=== PATIENT | male | born 1945 | race Caucasian/White ===

== ENCOUNTER 2021-11-21 18:53 | Inpatient (IN) | payer MEDICARE ==
[2021-11-21] MEDS ORDERED: HYDROmorphone 0.5 MG/0.5 ML SYRINGE IVP STA ×2 (19:19→22:03)
--- NOTE | 2021-11-21 19:24 | ED ---
Neuro HPI - General Chief Complaint: Neuro Symptoms/Deficit Stated Complaint: headache/ear pain/loss of vision/arm numbness Source: patient Mode of arrival: ambulatory Limitations: no limitations - History of Present Illness Is the patient presenting with stroke symptoms?: No Initial Comments: 76-year-old male history of CVA in the past mother medical issues who states he had the onset yesterday of some loss of vision in his left eye he later stated w as around 3 or 3:30 today he's had a headache since that time worse in the migraine he states. No loss of function to his upper or lower extremities he does have a contraction of his left ring finger. He also states he had some difficulty with ambulation. He states he would've come the hospital yesterday but he could not get a ride. He did not want come by ambulance. He states his vision is left eye is now somewhat fuzzy but improved from an stated earlier. He also states he has severe ALLERGIES to contrast he was coded when he got some years ago. No fevers chills nausea vomiting sweats he states he also has some ear pain bilaterally. Posture some pain going into his neck. - Related Data Home Medications: Home Medications Medication Instructions Recorded Confirmed Aspirin EC [Ecotrin] 325 mg PO DAILY 11/10/14 11/10/14 Atorvastatin [Lipitor] 20 mg PO DAILY 11/10/14 11/10/14 Cholecalciferol [Vitamin D3] 2,000 unit PO DAILY@1200 11/10/14 11/10/14 Clopidogrel [Plavix] 75 mg PO DAILY 11/10/14 11/10/14 Doxazosin [Cardura] 1 mg PO DAILY 11/10/14 11/10/14 Finasteride [Proscar] 5 mg PO DAILY 11/10/14 11/10/14 Gabapentin [Neurontin] 300 mg PO DAILY 11/10/14 11/10/14 Insulin Glargine [Lantus] 50 unit SQ BID 11/10/14 11/10/14 Insulin NPH Hum/Reg Insulin Hm 30 unit SQ DAILY 11/10/14 11/10/14 [NovoLIN 70-30 100 UNIT/ML VIAL] Metoprolol Tartrate [Lopressor] 50 mg PO BID 11/10/14 11/10/14 Nitroglycerin Sl Tabs [Nitrostat] 0.4 mg SUBLINGUAL DIRECTED PRN 11/10/14 11/10/14 Silodosin [Rapaflo] 8 mg PO DAILY 11/10/14 11/10/14 Tamsulosin [Flomax] 0.4 mg PO DAILY 11/10/14 11/10/14 lisinopriL [Zestril] 2.5 mg PO DAILY 11/10/14 11/10/14 Allergies/Adverse Reactions: Allergies Allergy/AdvReac Type Severity Reaction Status Date / Time iodine Allergy Unknown Verified 11/21/21 19:00 Review of Systems ROS Statement: Those systems with pertinent positive or pertinent negative responses have been documented in the HPI. ROS Other: All systems not noted in ROS Statement are negative. General Exam - General Exam Comments Initial Comments: This is a well-developed well-nourished awake alert oriented 4 male Limitations: no limitations General appearance: alert, in no apparent distress Head exam: Present: atraumatic, normocephalic, normal inspection Eye exam: Present: normal appearance, PERRL, EOMI. Absent: scleral icterus, conjunctival injection, periorbital swelling Pupils: Present: normal accommodation, other (Eyegrounds poorly visualized) ENT exam: Present: normal exam, mucous membranes moist Neck exam: Present: normal inspection, full ROM, other (No stridor JVD or bruits). Absent: tenderness, meningismus, lymphadenopathy Respiratory exam: Present: normal lung sounds bilaterally. Absent: respiratory distress, wheezes, rales, rhonchi, stridor Cardiovascular Exam: Present: regular rate, normal rhythm, normal heart sounds. Absent: systolic murmur, diastolic murmur, rubs, gallop, clicks GI/Abdominal exam: Present: soft, normal bowel sounds. Absent: distended, tend erness, guarding, rebound, rigid Extremities exam: Present: full ROM, normal capillary refill, other (Flexion of the left ring finger is noted). Absent: tenderness, pedal edema, joint swelling, calf tenderness Back exam: Present: normal inspection, full ROM. Absent: tenderness Neurological exam: Present: alert, oriented X3, CN II-XII intact Psychiatric exam: Present: normal affect, normal mood Skin exam: Present: warm, dry, intact, normal color. Absent: rash Stroke MDM - Lab Data Result diagrams: 11/21/21 19:41 11/21/21 19:41 Lab Results 11/21/21 11/21/21 11/21/21 Range/Units 19:41 19:41 19:41 WBC 8.0 (3.8-10.6) k/uL RBC 4.68 (4.30-5.90) m/uL Hgb 14.4 (13.0-17.5) gm/dL Hct 44.2 (39.0-53.0) % MCV 94.4 (80.0-100.0) fL MCH 30.7 (25.0-35.0) pg MCHC 32.5 (31.0-37.0) g/dL RDW 12.0 (11.5-15.5) % Plt Count 280 (150-450) k/uL MPV 8.1 Neutrophils % 65 % Lymphocytes % 22 % Monocytes % 7 % Eosinophils % 4 % Basophils % 1 % Neutrophils # 5.2 (1.3-7.7) k/uL Lymphocytes # 1.8 (1.0-4.8) k/uL Monocytes # 0.6 (0-1.0) k/uL Eosinophils # 0.3 (0-0.7) k/uL Basophils # 0.1 (0-0.2) k/uL PT 10.5 (9.0-12.0) sec INR 1.0 (<1.2) APTT 23.5 (22.0-30.0) sec Sodium 127 L (137-145) mmol/L Potassium 4.9 (3.5-5.1) mmol/L Chloride 94 L (98-107) mmol/L Carbon Dioxide 28 (22-30) mmol/L Anion Gap 5 mmol/L BUN 12 (9-20) mg/dL Creatinine 0.59 L (0.66-1.25) mg/dL Est GFR (CKD-EPI)AfAm >90 (>60 ml/min/1.73 sqM) Est GFR (CKD-EPI)NonAf >90 (>60 ml/min/1.73 sqM) Glucose 109 H (74-99) mg/dL Calcium 9.3 (8.4-10.2) mg/dL Magnesium 1.8 (1.6-2.3) mg/dL Total Bilirubin 0.7 (0.2-1.3) mg/dL AST 27 (17-59) U/L ALT 22 (4-49) U/L Alkaline Phosphatase <20 L (38-126) U/L Troponin I (0.000-0.034) ng/mL Total Protein 6.7 (6.3-8.2) g/dL Albumin 4.2 (3.5-5.0) g/dL 11/21/21 Range/Units 19:41 WBC (3.8-10.6) k/uL RBC (4.30-5.90) m/uL Hgb (13.0-17.5) gm/dL Hct (39.0-53.0) % MCV (80.0-100.0) fL MCH (25.0-35.0) pg MCHC (31.0-37.0) g/dL RDW (11.5-15.5) % Plt Count (150-450) k/uL MPV Neutrophils % % Lymphocytes % % Monocytes % % Eosinophils % % Basophils % % Neutrophils # (1.3-7.7) k/uL Lymphocytes # (1.0-4.8) k/uL Monocytes # (0-1.0) k/uL Eosinophils # (0-0.7) k/uL Basophils # (0-0.2) k/uL PT (9.0-12.0) sec INR (<1.2) APTT (22.0-30.0) sec Sodium (137-145) mmol/L Potassium (3.5-5.1) mmol/L Chloride (98-107) mmol/L Carbon Dioxide (22-30) mmol/L Anion Gap mmol/L BUN (9-20) mg/dL Creatinine (0.66-1.25) mg/dL Est GFR (CKD-EPI)AfAm (>60 ml/min/1.73 sqM) Est GFR (CKD-EPI)NonAf (>60 ml/min/1.73 sqM) Glucose (74-99) mg/dL Calcium (8.4-10.2) mg/dL Magnesium (1.6-2.3) mg/dL Total Bilirubin (0.2-1.3) mg/dL AST (17-59) U/L ALT (4-49) U/L Alkaline Phosphatase (38-126) U/L Troponin I <0.012 (0.000-0.034) ng/mL Total Protein (6.3-8.2) g/dL Albumin (3.5-5.0) g/dL - NIH Stroke Scale 1a. Level of Consciousness: (0) alert 1b. LOC Questions: (0) answers correctly 1c. LOC Commands: (0) performs tasks correctly 2. Best Gaze: (0) normal 3. Visual: (1) partial hemianopia 4. Facial Palsy: (0) normal symmetrical movement 5a. Motor Arm Left: (0) no drift 5b. Motor Arm Right: (0) no drift 6a. Motor Leg Left: (0) no drift 6b. Motor Leg Right: (0) no drift 7. Limb Ataxia: (0) absent 8. Sensory: (0) normal 9. Best Language: (0) no aphasia 10. Dysarthria: (0) normal 11. Extinction/Inattention: (0) no abnormality - Thrombolytic Inclusion/Exclusion Thrombolytic Exclusion Criteria: Symptom Onset > 4.5 Hours - Medical Decision Making Did have a long discussion with the patient family the patient's presentation is consistent with a TIA he symptoms are thought to [employer] yesterday but now he states his vision is pretty much back to normal. Unclear whether this is a migraine.. Patient be admitted with neurological consultation case discussed with Daryn who is covering for Dr. Barajas who is covering for Dr. Juan Past Medical History Past Medical History: CVA/TIA, Diabetes Mellitus, Myocardial Infarction ([place]) History of Any Multi-Drug Resistant Organisms: None Reported Past Surgical History: Bowel Resection, Joint Replacement Additional Past Surgical History / Comment(s): adrenalectomy Past Psychological History: No Psychological Hx Reported Smoking Status: Current every day smoker Past Alcohol Use History: None Reported Past Drug Use History: None Reported Course Vital Signs 11/21/21 18:54 Temperature 97.8 F Pulse Rate 72 Respiratory 18 Rate Blood Pressure 165/75 O2 Sat by Pulse 94 L Oximetry - Reevaluation(s) Reevaluation #1: 11/21/21 22:38 Voice patient reveals that his vision has improved Disposition Clinical Impression: Transient cerebral ischemia, Cephalgia, Hyponatremia Disposition: ADMITTED IP TO THIS [facility] Condition: Stable Referrals: Jody Juan DO [Primary Care Provider] - 1-2 days
--- NOTE | 2021-11-21 20:15 | XR ---
EXAMINATION TYPE: XR chest 2V DATE OF EXAM: 11/21/2021 COMPARISON: 11/10/2014 HISTORY: Altered mental status TECHNIQUE: 2 views FINDINGS: Heart and mediastinum are normal. Lungs are clear. Diaphragm is normal. There is old left c lavicle fracture. There is right shoulder prosthesis. Thoracic aorta is atheromatous. No pleural effu marcelino. IMPRESSION: No active cardiopulmonary disease. No change.
--- NOTE | 2021-11-21 20:31 | CT ---
EXAMINATION TYPE: CT brain wo con DATE OF EXAM: 11/21/2021 COMPARISON: 11/10/2014 HISTORY: Neuro deficits headache, ear pain, loss of vision CT DLP: 1094.4 mGycm Automated exposure control for dose reduction was used. Images of the brain obtained with no contrast. Ventricles have fairly normal size. There is no mass effect or midline shift. No sign of intracranial hemorrhage. The calvarium is intact. No evidence of cerebral edema. There is minimal cerebral atroph y. IMPRESSION: Mild atrophy. No acute intracranial abnormality. No change.
[2021-11-21 20:39] LABS: Partial Thromboplastin Time 23.5 sec (22.0-30.0); Prothrombin Time 10.5 sec (9.0-12.0)
[2021-11-21 20:44] LABS: ALT 22 U/L (4-49); AST 27 U/L (17-59); African American GFR (CKD) >90 (>60 ml/min/1.73 sqM); Albumin 4.2 g/dL (3.5-5.0); Alkaline Phosphatase <20 U/L (38-126); Anion Gap 5 mmol/L; Blood Urea Nitrogen 12 mg/dL (9-20); Calcium 9.3 mg/dL (8.4-10.2); Carbon Dioxide 28 mmol/L (22-30); Chloride 94 mmol/L (98-107); Glucose 109 mg/dL (74-99); Magnesium 1.8 mg/dL (1.6-2.3); Non-African American GFR(CKD) >90 (>60 ml/min/1.73 sqM); Potassium 4.9 mmol/L (3.5-5.1); Sodium 127 mmol/L (137-145); Total Bilirubin 0.7 mg/dL (0.2-1.3); Total Protein 6.7 g/dL (6.3-8.2)
[2021-11-21 20:51] LABS: Basophils # (A) 0.1 k/uL (0-0.2); Basophils % (A) 1 %; Eosinophils # (A) 0.3 k/uL (0-0.7); Eosinophils % (A) 4 %; HCT 44.2 % (39.0-53.0); HGB 14.4 gm/dL (13.0-17.5); Lymphocytes # (A) 1.8 k/uL (1.0-4.8); Lymphocytes % (A) 22 %; MCH 30.7 pg (25.0-35.0); MCHC 32.5 g/dL (31.0-37.0); MCV 94.4 fL (80.0-100.0); Mean Platelet Volume 8.1; Monocytes # (A) 0.6 k/uL (0-1.0); Monocytes % (A) 7 %; Neutrophils # (A) 5.2 k/uL (1.3-7.7); Neutrophils % (A) 65 %; Platelet Count 280 k/uL (150-450); RBC 4.68 m/uL (4.30-5.90)
[2021-11-21] MEDS ORDERED: diphenhydrAMINE 50 MG/ML 1 ML VIAL IVP STA (22:02)
[2021-11-21] MEDS ORDERED: METOCLOPRAMIDE 5 MG/ML 2 ML VIAL IVP STA (22:03)
[2021-11-21] MEDS ORDERED: NITROGLYCERIN SL TABS 0.4 MG TAB SUBLINGUAL PRN (22:43)
[2021-11-22 01:58] LABS: Glucose,Whole Blood 204 mg/dL (70-110)
[2021-11-22] MEDS: SODIUM CHLORIDE 0.9% 1,000 ML IV SCH ×3 (02:48→14:41)
[2021-11-22 06:50] LABS: Glucose,Whole Blood 186 mg/dL (70-110)
[2021-11-22 08:20] LABS: Basophils # (A) 0.1 k/uL (0-0.2); Basophils % (A) 1 %; Eosinophils # (A) 0.3 k/uL (0-0.7); Eosinophils % (A) 5 %; HCT 45.7 % (39.0-53.0); Lymphocytes # (A) 1.7 k/uL (1.0-4.8); Lymphocytes % (A) 27 %; MCH 31.6 pg (25.0-35.0); MCHC 32.8 g/dL (31.0-37.0); MCV 96.2 fL (80.0-100.0); Monocytes # (A) 0.4 k/uL (0-1.0); Monocytes % (A) 7 %; Neutrophils # (A) 3.6 k/uL (1.3-7.7); Neutrophils % (A) 58 %; Platelet Count 269 k/uL (150-450); RBC 4.75 m/uL (4.30-5.90); RDW 12.6 % (11.5-15.5); WBC 6.2 k/uL (3.8-10.6)
[2021-11-22 08:25] LABS: African American GFR (CKD) >90 (>60 ml/min/1.73 sqM); Anion Gap 4 mmol/L; Blood Urea Nitrogen 13 mg/dL (9-20); Carbon Dioxide 25 mmol/L (22-30); Chloride 100 mmol/L (98-107); Glucose 179 mg/dL (74-99); Magnesium 1.7 mg/dL (1.6-2.3); Non-African American GFR(CKD) >90 (>60 ml/min/1.73 sqM); Potassium 4.5 mmol/L (3.5-5.1); Sodium 129 mmol/L (137-145)
[2021-11-22] MEDS ORDERED: INSULIN DETEMIR (LEVEMIR) 100 UNIT/ML SYR SQ SCH (09:00)
[2021-11-22] MEDS ORDERED: TAMSULOSIN 0.4 MG CAP.ER.24H PO SCH (09:00)
[2021-11-22] MEDS ORDERED: INSULN ASP PRT/INSULIN ASPART 100 UNIT/ML 10 ML VIAL SQ SCH (09:00)
[2021-11-22] MEDS ORDERED: PANTOPRAZOLE 40 MG/10 ML VIAL IVP SCH (09:15)
[2021-11-22 09:19] LABS: Erythrocyte Sedimentation Rate 4 mm/hr (0-15)
[2021-11-22] MEDS: ATORVASTATIN 20 MG TAB PO SCH (09:28)
[2021-11-22] MEDS: FINASTERIDE 5 MG TAB PO SCH (09:28)
[2021-11-22] MEDS: CHOLECALCIFEROL 25 MCG (1000 IU) TABLET PO SCH (09:28)
[2021-11-22] MEDS: CLOPIDOGREL 75 MG TAB PO SCH (09:28)
[2021-11-22] MEDS: DOXAZOSIN 1 MG TAB PO SCH (09:28)
[2021-11-22] MEDS: GABAPENTIN 300 MG CAP PO SCH (09:28)
[2021-11-22] MEDS: METOPROLOL TARTRATE 50 MG TAB PO SCH ×2 (09:28→21:19)
[2021-11-22 09:29] LABS: Glucose,Whole Blood 259 mg/dL (70-110)
[2021-11-22] MEDS: ASPIRIN 325 MG TAB PO SCH (09:29)
[2021-11-22] MEDS: HEPARIN SODIUM,PORCINE/PF 5,000 UNIT/0.5 ML SYRINGE SQ SCH ×2 (09:29→21:18)
[2021-11-22] MEDS: TAMSULOSIN 0.4 MG CAP.ER.24H PO SCH (09:29)
[2021-11-22] MEDS: FAMOTIDINE 20 MG/2 ML VIAL IV SCH ×2 (09:29→21:19)
--- NOTE | 2021-11-22 10:53 | P.CNNES ---
History of Present Illness Consult date: 11/22/21 Reason for Consult: TIA History of Present Illness: The patient is a 76-year-old male who is seen in neurologic consultation on November 22, 2021, via teleneurology. The patient is being seen because of concerns regarding TIA versus stroke. The patient reports that he has been having pain in his eyes that has radiated into his temples and ears. He states that his whole head feels as if all explode. He describes a pressure sensation. The patient reports that 2 days ago, he lost vision in his left eye. He says this morning, the vision has improved. He describes it as "hazy". In addition to the head and eye pain, the patient reports neck pain. He says that actually his entire spine is painful. The patient initially thought that his eye pain was secondary to his sinuses. He also has a history of migraine headaches and so wondered if this was a migraine headache. The patient has multiple complaints of pain. He denies di fficulty with speech and swallowing. The patient reportedly lives alone. He says that he tends to stagger when he walks. He reports that if he bends over, he tends to fall to the ground. The patient also notes that he has felt more confused lately. The patient reports that his daughter takes care of his finances. The patient does do his own shopping. The patient reports that he eats poorly because he lives alone and states that it is "difficult to cook for myself". CT scan of the brain was performed in the emergency department. There is no evidence of acute hemorrhage or infarct. Past Medical History Past Medical History: CVA/TIA, Diabetes Mellitus, Myocardial Infarction ([place]) Last Myocardial Infarction Date:: 2004 History of Any Multi-Drug Resistant Organisms: None Reported Past Surgical History: Bowel Resection, Joint Replacement Additional Past Surgical History / Comment(s): adrenalectomy Past Psychological History: No Psychological Hx Reported Smoking Status: Current every day smoker Past Alcohol Use History: None Reported Past Drug Use History: None Reported Medications and Allergies Home Medications Medication Instructions Recorded Confirmed Type Aspirin EC [Ecotrin] 325 mg PO DAILY 11/10/14 11/10/14 History Atorvastatin [Lipitor] 20 mg PO DAILY 11/10/14 11/10/14 History Cholecalciferol [Vitamin D3] 2,000 unit PO DAILY@1200 11/10/14 11/10/14 History Clopidogrel [Plavix] 75 mg PO DAILY 11/10/14 11/10/14 History Doxazosin [Cardura] 1 mg PO DAILY 11/10/14 11/10/14 History Finasteride [Proscar] 5 mg PO DAILY 11/10/14 11/10/14 History Gabapentin [Neurontin] 300 mg PO DAILY 11/10/14 11/10/14 History Insulin Glargine [Lantus] 50 unit SQ BID 11/10/14 11/10/14 History Insulin NPH Hum/Reg Insulin Hm 30 unit SQ DAILY 11/10/14 11/10/14 History [NovoLIN 70-30 100 UNIT/ML VIAL] Metoprolol Tartrate [Lopressor] 50 mg PO BID 11/10/14 11/10/14 History Nitroglycerin Sl Tabs [Nitrostat] 0.4 mg SUBLINGUAL DIRECTED PRN 11/10/14 11/10/14 History Silodosin [Rapaflo] 8 mg PO DAILY 11/10/14 11/10/14 History Tamsulosin [Flomax] 0.4 mg PO DAILY 11/10/14 11/10/14 History lisinopriL [Zestril] 2.5 mg PO DAILY 11/10/14 11/10/14 History Allergies Allergy/AdvReac Type Severity Reaction Status Date / Time iodine Allergy Unknown Verified 11/21/21 19:00 Physical Examination - Vital Signs Vital Signs: Vital Signs Temp Pulse Pulse Resp BP BP Pulse Ox 11/22/21 09:26 96.9 F L 72 18 174/78 95 11/22/21 03:17 97.9 F 80 17 146/67 96 11/22/21 02:14 97.7 F 77 16 155/81 95 11/21/21 23:57 91 18 138/68 93 L 11/21/21 18:54 97.8 F 72 18 165/75 94 L Intake and Output 11/21/21 11/22/21 11/22/21 22:59 06:59 14:59 Intake Total 540 Balance 540 Intake: Oral 540 Other: Voiding Method Toilet Weight 83.461 kg 83.461 kg Gen.: The patient is seated in the bedside chair. He is well-nourished. He is in no acute distress. HEENT: Head is atraumatic, normocephalic. Fundus not visualized. There is no scleral icterus. Mucous membranes are moist. There is tenderness to palpation of the right temporal artery. Neck: Supple without carotid bruits Heart: Regular rate and rhythm Lungs: Scattered wheezing Extremities: Without edema. There are contractures of the fingers of the left hand. Neurological examination Mental status: Patient is awake, alert and oriented 3. His speech is clear. There is no dysarthria or aphasia Cranial nerves: Pupils are equal at 1 mm and reactive. Visual leal are full to confrontation. Extraocular movements are intact. There is no nystagmus. Facial sensation is intact. There is no facial asymmetry. Hearing is grossly intact. Uvula and palate are midline. Shoulder shrug is symmetric. Tongue p rotrudes midline. Motor: Silver Chaser strength is equal. Upper extremity strength is difficult to accurately assess secondary to right shoulder pain. Bilateral lower extremity strength is 5/5. Sensation: Intact to light touch throughout. There is no extinction with double simultaneous stimulation. Coordination: [id number] testing is intact. Deep tendon reflexes: 1+/4+ at the bilateral biceps. Bilateral brachioradialis and patellar reflexes are 2+/4+. Gait: Not assessed Results - Laboratory Findings CBC and BMP: 11/22/21 06:59 11/22/21 06:59 Abnormal Lab Findings: Abnormal Labs 11/21/21 11/22/21 11/22/21 19:41 01:37 06:33 Sodium 127 L Chloride 94 L Creatinine 0.59 L Glucose 109 H POC Glucose (mg/dL) 204 H 186 H Alkaline Phosphatase <20 L 11/22/21 11/22/21 06:59 09:27 Sodium 129 L Chloride Creatinine 0.58 L Glucose 179 H POC Glucose (mg/dL) 259 H Alkaline Phosphatase Assessment and Plan Assessment: 1. The patient is a 76-year-old male who complains of pain in his eyes, ears, head and temples. There is concern for temporal arteritis versus TIA 2. Reported history of stroke and several TIAs 3. Hyponatremia 4. History of hypertension 5. Reported history of cardiac disease Plan: 1. Sedimentation rate should be checked 2. Physical therapy evaluation 3. Agree with TIA workup 4. Consider ophthalmology consultation for visual loss 5. Continue aspirin and Plavix 6. High-dose statin should be initiated 7. Discharge planning regarding safe discharge plan Thank you for allowing us to participate in the care of this patient Dr. Hernandez will assume neurologic coverage of this patient as of November 23, 2021 Time with Patient: Greater than 30 (spent 40 minutes with patient via telemedicine.)
[2021-11-22 11:49] LABS: Glucose,Whole Blood 124 mg/dL (70-110)
[2021-11-22 12:25] LABS: Chol/HDL Ratio 3.47 Ratio
[2021-11-22 16:51] LABS: Glucose,Whole Blood 48 mg/dL (70-110)
[2021-11-22 17:06] LABS: Glucose,Whole Blood 92 mg/dL (70-110)
[2021-11-22 20:13] LABS: Glucose,Whole Blood 139 mg/dL (70-110)
[2021-11-22] MEDS: HYDROcodone/APAP 5-325MG 1 EACH TAB PO PRN (21:19)
--- NOTE | 2021-11-22 21:47 | P.HPIM ---
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 Patient symptoms started a day before yesterday and thought due to his migraine headache. No weakness in the upper or lower extremities except described jair his left ring finger. Did have difficulty ambulation. Patient states that he would have come to the hospital yesterday but could not get a ride. Patient woke up this morning and felt discomfort in his chest but resolved. His left vision is also improved today. Denies any complaints of shortness of breath. Denies any fever or chills. No nausea vomiting or abdominal pain or diarrhea. Denies any recent illnesses. No fever no chills. No cough or sputum production. Chest x-ray showed no acute cardiopulmonary disease. No change. CT head showed mild atrophy. No acute intracranial abnormality. No change. EKG showed sinus rhythm with first-degree AV block with occasional ventricular premature Laboratory pressure WBC 8.0 hemoglobin 14.4 and platelets 94.4 sodium 127 potassium 4.9 chloride 94 bicarb is 28 BUN 12 and creatinine 0.59 A1c 8.1 not elevated troponins x1 negative and LDL 73 Review of Systems Constitutional: Patient denies any fever or chills . Generalized weakness. Abdomen: Patient denied any nausea or vomiting or abd. pain Cardiovascular: Patient denies any chest pain or short of breath no palpitations. Respiratory: patient denied any cough is from production. No shortness of breath Neurologic: Patient denied any numbness or tingling patient does have left eye blurred vision and headache.. Musculoskeletal: Patient denies any complaints of joint swelling or deformity. Skin: Negative Psychiatric: Negative Endocrine: No heat or cold intolerance. No recent weight gain. Genitourinary: No dysuria or hematuria. All other 14 point ROS negative except the above Past Medical History Past Medical History: CVA/TIA, Diabetes Mellitus, Myocardial Infarction ([place]) Last Myocardial Infarction Date:: 2004 History of Any Multi-Drug Resistant Organisms: None Reported Past Surgical History: Bowel Resection, Joint Replacement Additional Past Surgical History / Comment(s): adrenalectomy Past Psychological History: No Psychological Hx Reported Smoking Status: Current every day smoker Past Alcohol Use History: None Reported Past Drug Use History: None Reported Medications and Allergies Home Medications Medication Instructions Recorded Confirmed Type Atorvastatin [Lipitor] 20 mg PO MOWEFR 11/10/14 11/22/21 History Finasteride [Proscar] 5 mg PO DAILY 11/10/14 11/22/21 History Insulin NPH Hum/Reg Insulin Hm 10 unit SQ AC-[id number] 11/10/14 11/22/21 History [NovoLIN 70-30 100 UNIT/ML VIAL] Metoprolol Tartrate [Lopressor] 75 mg PO DAILY 11/10/14 11/22/21 History Nitroglycerin Sl Tabs [Nitrostat] 0.4 mg SUBLINGUAL Q5M PRN 11/10/14 11/22/21 History Tamsulosin [Flomax] 0.4 mg PO DAILY 11/10/14 11/22/21 History lisinopriL [Zestril] 2.5 mg PO DAILY 11/10/14 11/22/21 History Aspirin EC [Ecotrin Low Dose] 81 mg PO DAILY 11/22/21 11/22/21 History Donepezil [Aricept] 5 mg PO DAILY 11/22/21 11/22/21 History Gabapentin 600 mg PO BID 11/22/21 11/22/21 History HYDROcodone/APAP 5-325MG [[place] 1 tab PO TID PRN 11/22/21 11/22/21 History 5-325] Insulin Glargine,Hum.rec.anlog 50 units SQ HS 11/22/21 11/22/21 History [Lantus Solostar Pen] Insulin NPH Hum/Reg Insulin Hm 30 unit SQ AC-SUPPER 11/22/21 11/22/21 History [Novolin 70-30 100 Unit/ml Vial] Metoprolol Tartrate [Lopressor] 50 mg PO HS 11/22/21 11/22/21 History Milnacipran HCl [Savella] 100 mg PO DAILY 11/22/21 11/22/21 History Montelukast Sodium [Singulair] 10 mg PO DAILY 11/22/21 11/22/21 History Allergies Allergy/AdvReac Type Severity Reaction Status Date / Time iodine Allergy Unknown Verified 11/22/21 12:44 Physical Exam Vitals: Vital Signs Temp Pulse Pulse Resp BP BP Pulse Ox 11/22/21 09:26 96.9 F L 72 18 174/78 95 11/22/21 03:17 97.9 F 80 17 146/67 96 11/22/21 02:14 97.7 F 77 16 155/81 95 11/21/21 23:57 91 18 138/68 93 L 11/21/21 18:54 97.8 F 72 18 165/75 94 L Intake and Output 11/21/21 11/22/21 11/22/21 22:59 06:59 14:59 Intake Total 540 Balance 540 Intake: Oral 540 Other: Voiding Method Toilet Weight 83.461 kg 83.461 kg PHYSICAL EXAMINATION: Patient is lying in the bed comfortably, no acute distress, awake alert and oriented.. HEENT: Normocephalic. Neck is supple. Pupils reactive. Nostrils clear. Oral cavity is moist. Neck reveals no JVD, carotid bruits, or thyromegaly. CHEST EXAMINATION: Trachea is central. Symmetrical expansion. Lung leal clear to auscultation and percussion. CARDIAC: Normal S1, S2 with no gallops. No murmurs ABDOMEN: Soft. Bowel sounds present. Nontender. No organomegaly. No abdominal bruits. Extremities: reveal no edema. No clubbing or cyanosis Neurologically awake, alert, oriented x3 with well-coordinated movements. No focal deficits noted Skin: No rash or skin lesions. Psychiatric: Coperative. Nonsuicidal, anxious. Musculoskeletal: No joint swelling or deformity. Normal range of motion. Results CBC & Chem 7: 11/22/21 06:59 11/22/21 06:59 Labs: Abnormal Lab Results - Last 24 Hours (Table) 11/21/21 11/22/21 11/22/21 Range/Units 19:41 01:37 06:33 Sodium 127 L (137-145) mmol/L Chloride 94 L (98-107) mmol/L Creatinine 0.59 L (0.66-1.25) mg/dL Glucose 109 H (74-99) mg/dL POC Glucose (mg/dL) 204 H 186 H (70-110) mg/dL Alkaline Phosphatase <20 L (38-126) U/L 11/22/21 11/22/21 Range/Units 06:59 09:27 Sodium 129 L (137-145) mmol/L Chloride (98-107) mmol/L Creatinine 0.58 L (0.66-1.25) mg/dL Glucose 179 H (74-99) mg/dL POC Glucose (mg/dL) 259 H (70-110) mg/dL Alkaline Phosphatase (38-126) U/L Thrombosis Risk Factor Assmnt - DVT/VTE Prophylaxis DVT/VTE Prophylaxis: Pharmacologic Prophylaxis ordered - Choose All That Apply Any of the Below Risk Factors Present?: Yes Each Factor Represents 1 point: Abnormal pulmonary function (COPD), Acute SD, Obesity (BMI >25) Other Risk Factors: Yes Each Risk Factor Represents 3 Points: Age 75 years or older Other congenital or acquired thrombophilia - If yes, enter type in comment: No Thrombosis Risk Factor Assessment Total Risk Factor Score: 6 Thrombosis Risk Factor Assessment Level: High Risk Assessment and Plan Assessment: Left eye blurred vision with headache and left temporal pain. Possible TIA versus temporal arteritis in the differential. Prior history of CVA/TIA Hypovolemic hyponatremia Hyperglycemia with uncontrolled diabetes type 2 Hypertension History SD Dementia DVT prophylaxis with heparin subcu Plan: Patient will be continued on telemetry monitoring. Continue with aspirin Plavix and statins. Patient was started back on insulin regimen and titrate dose as needed. Continue with IV hydration and monitor sodium level and follow-up closely. IV hydration. Neurology is on board. Time with Patient: Greater than 30
[2021-11-22] MEDS: INSULIN ASPART (NovoLOG) 100 UNIT/ML VIAL SQ SCH (22:17)
[2021-11-23 06:11] LABS: Glucose,Whole Blood 131 mg/dL (70-110)
[2021-11-23] MEDS: INSULIN DETEMIR (LEVEMIR) 100 UNIT/ML SYR SQ SCH (06:33)
[2021-11-23] MEDS: INSULIN ASPART (NovoLOG) 100 UNIT/ML VIAL SQ SCH ×4 (06:34→20:55)
[2021-11-23] MEDS: HYDROcodone/APAP 5-325MG 1 EACH TAB PO PRN ×2 (06:34→21:43)
[2021-11-23 08:11] LABS: Basophils # (A) 0.1 k/uL (0-0.2); Basophils % (A) 1 %; Eosinophils # (A) 0.3 k/uL (0-0.7); Eosinophils % (A) 5 %; HCT 47.7 % (39.0-53.0); Lymphocytes # (A) 1.6 k/uL (1.0-4.8); Lymphocytes % (A) 26 %; MCH 30.2 pg (25.0-35.0); MCHC 31.5 g/dL (31.0-37.0); MCV 95.9 fL (80.0-100.0); Mean Platelet Volume 7.8; Monocytes # (A) 0.4 k/uL (0-1.0); Monocytes % (A) 6 %; Neutrophils # (A) 3.9 k/uL (1.3-7.7); Neutrophils % (A) 61 %; Platelet Count 288 k/uL (150-450); RBC 4.97 m/uL (4.30-5.90); RDW 12.1 % (11.5-15.5); WBC 6.4 k/uL (3.8-10.6)
[2021-11-23 08:27] LABS: African American GFR (CKD) >90 (>60 ml/min/1.73 sqM); Anion Gap 4 mmol/L; Blood Urea Nitrogen 13 mg/dL (9-20); Calcium 9.3 mg/dL (8.4-10.2); Carbon Dioxide 28 mmol/L (22-30); Chloride 99 mmol/L (98-107); Glucose 92 mg/dL (74-99); Non-African American GFR(CKD) >90 (>60 ml/min/1.73 sqM); Potassium 4.6 mmol/L (3.5-5.1); Sodium 131 mmol/L (137-145)
[2021-11-23] MEDS: CLOPIDOGREL 75 MG TAB PO SCH (09:09)
[2021-11-23] MEDS: ATORVASTATIN 20 MG TAB PO SCH (09:09)
[2021-11-23] MEDS: FINASTERIDE 5 MG TAB PO SCH (09:09)
[2021-11-23] MEDS: GABAPENTIN 300 MG CAP PO SCH (09:09)
[2021-11-23] MEDS: FAMOTIDINE 20 MG TAB PO SCH ×2 (09:09→20:55)
[2021-11-23] MEDS: METOPROLOL TARTRATE 50 MG TAB PO SCH ×2 (09:09→20:55)
[2021-11-23] MEDS: HEPARIN SODIUM,PORCINE/PF 5,000 UNIT/0.5 ML SYRINGE SQ SCH ×2 (09:09→20:54)
[2021-11-23] MEDS: TAMSULOSIN 0.4 MG CAP.ER.24H PO SCH (09:09)
[2021-11-23] MEDS: ASPIRIN 325 MG TAB PO SCH (09:09)
[2021-11-23] MEDS: DOXAZOSIN 1 MG TAB PO SCH (09:10)
--- NOTE | 2021-11-23 11:37 | CA ---
Transthoracic Echo Report Name: Smith Moreno Age: 76 Gender: M : 1945 Exam Date: 11/23/2021 07:59 Exam Location: [facility] Ht (in): 61 Wt (lb): 184 Ordering Physician: Goldie Brown DO Attending/Referring Phys: Water [employer] Plant Repairer Denise Wallis RDCS Procedure CPT: Indications: tia Cardiac Hx: Hx of mi,cath,htn,chol and diabetes Technical Quality: Technically difficult study Contrast 1: Lumason Total Dose (mL): 1 Contrast 2: Total Dose (mL): MEASUREMENTS (Male / Female) Normal Values 2D ECHO LV Diastolic Diameter PLAX 5.4 cm 4.2 - 5.9 / 3.9 - 5.3 cm LV Systolic Diameter PLAX 3.7 cm IVS Diastolic Thickness 1.0 cm 0.6 - 1.0 / 0.6 - 0.9 cm LVPW Diastolic Thickness 1.3 cm 0.6 - 1.0 / 0.6 - 0.9 cm LV Relative Wall Thickness 0.4 RV Internal Dim ED PLAX 2.5 cm M-MODE Aortic Root Diameter MM 4.0 cm LA Systolic Diameter MM 3.5 cm LA Ao Ratio MM 0.9 AV Cusp Separation MM 2.8 cm DOPPLER MV Area PHT 3.9 cm??? MR Peak Velocity 110.3 cm/s MR Peak Gradient 4.9 mmHg Mitral E Point Velocity 66.1 cm/s Mitral A Point Velocity 83.7 cm/s Mitral E to A Ratio 0.8 MV Deceleration Time 192.2 ms TR Peak Velocity 121.5 cm/s TR Peak Gradient 5.9 mmHg Right Ventricular Systolic Press 10.9 mmHg FINDINGS Left Ventricle Left ventricular ejection fraction is estimated at 40-45 %. Left ventricular cavity size normal. Left ventricular wall thickness normal. Mid to apical septum hypokinesis. Right Ventricle Normal right ventricular size and function. Right Atrium Right atrium not well visualized. Left Atrium Normal left atrial size. Mitral Valve Trace mitral regurgitation. Mitral valve thickened. Aortic Valve Aortic valve not well visualized. Tricuspid Valve Tricuspid valve not well visualized. Trace tricuspid regurgitation. Pulmonic Valve Pulmonic valve not well visualized. Pericardium Small pericardial effusion. Aorta Aortic dilatation measuring 4.0 cm. CONCLUSIONS Left ventricular ejection fraction 40-45% Mid to apical septum hypokinesis Trace mitral regurgitation Trace tricuspid regurgitation Small pericardial effusion without any tamponade physiology Aortic root dilation measuring 4.0 cm Previewed by: Dr. Joao Hernandez DO (Electronically Signed) Final Date: 23 November 2021 11:36
[2021-11-23 11:40] LABS: Glucose,Whole Blood 152 mg/dL (70-110)
--- NOTE | 2021-11-23 12:10 | P.CRDCN ---
History of Present Illness Consult date: 11/23/21 History of present illness: HISTORY OF PRESENT ILLNESS: This is a 76-year-old male with a past medical history significant for ischemic cardiomyopathy, palpitations with event monitor revealing 2 episodes of SVT, hypertension, hyperlipidemia, diabetes, and nicotine dependence. Patient follows in the office with Dr. Rios. We have been asked to see the patient in consultation for chest pain and TIA. Patient examined at the bedside. Patient presented to the hospital secondary to loss of vision in his left eye, confusion, and left arm weakness. He reports his vision has improved today. He reports having some chest tightness yesterday and last night but denies any chest pain or pressure this morning. * EKG reveals sinus mechanism. T wave inversions V1-V5 * Chest xray negative for acute process * Laboratory data: WBC 6.4. Hemoglobin 15.0. Platelet count 288. Sodium 131. Potassium 4.6. BUN 13. Creatinine 0.63. Troponin negative 3 * Current home cardiac medications include Lipitor 20 mg Tuesday, metoprolol tartrate 75 mg in the morning and 50 mg at night, lisinopril 2.5 mg daily, aspirin 81 mg daily * A cardiogram completed revealing ejection fraction 40-45%, mid to apical septal hypokinesis, trace MR, trace TR, small pericardial effusion without any tamponade physiology. * Cardiac catheterization history: September 1999 revealing total occlusion of proximal LAD, mild nonobstructive diffuse disease otherwise. REVIEW OF SYSTEMS: At the time of my exam: CONSTITUTIONAL: Denies fever or chills. HEENT: Denies blurred vision, vision changes, or eye pain. Denies hemoptysis CARDIOVASCULAR: Denies chest pain. Denies orthopnea. Denies PND. Denies palpitations RESPIRATORY: Denies shortness of breath. GASTROINTESTINAL: Denies abdominal pain. Denies nausea or vomiting. HEMATOLOGIC: Denies bleeding disorders. GENITOURINARY: Denies any blood in urine. SKIN: Denies pruitis. Denies rash. PHYSICAL EXAM: VITAL SIGNS: Reviewed. GENERAL: Well-developed in no acute distress. HEENT: Head is normocephalic. Pupils are equal, round. Sclerae anicteric. Mucous membranes of the mouth are moist. Neck supple. No JVD or thyromegaly LUNGS: Respirations even and unlabored. Lungs essentially clear to auscultation bilaterally. HEART: Regular rate and rhythm. S1 and S2 heard. ABDOMEN: Soft. Nondistended. Nontender. EXTREMITIES: Normal range of motion. No clubbing or cyanosis. Peripheral pulses intact. No lower extremity edema NEUROLOGIC: Awake and alert. Oriented x 3. ASSESSMENT: Left arm weakness with vision loss, possible TIA/CVA Chest pain, troponins negative 3, acute coronary syndrome ruled out Hypertension Hyperlipidemia Diabetes Ischemic cardiomyopathy Palpitations with previous event monitor revealing 2 episodes of SVT Nicotine dependence PLAN: 2D echo obtained and reviewed Increase Lipitor to 80mg daily Await further recommendations from neurology Patient to follow up outpatient with Dr. Rios. Dr. Rios discussed cardiac cath with patient on 11/13/2021 in the office. Patient refused at that time. Will re- address at follow up visit with Dr. Rios Further recommendations pending patient course Nurse practitioner note has been reviewed by physician. Signing provider agrees with the documented findings, assessment, and plan of care. Past Medical History Past Medical History: CVA/TIA, Diabetes Mellitus, Myocardial Infarction ([place]) Last Myocardial Infarction Date:: 2004 History of Any Multi-Drug Resistant Organisms: None Reported Past Surgical History: Bowel Resection, Joint Replacement Additional Past Surgical History / Comment(s): adrenalectomy Past Psychological History: No Psychological Hx Reported Smoking Status: Current every day smoker Past Alcohol Use History: None Reported Past Drug Use History: None Reported Medications and Allergies Home Medications Medication Instructions Recorded Confirmed Type Atorvastatin [Lipitor] 20 mg PO MOWEFR 11/10/14 11/22/21 History Finasteride [Proscar] 5 mg PO DAILY 11/10/14 11/22/21 History Insulin NPH Hum/Reg Insulin Hm 10 unit SQ AC-[id number] 11/10/14 11/22/21 History [NovoLIN 70-30 100 UNIT/ML VIAL] Metoprolol Tartrate [Lopressor] 75 mg PO DAILY 11/10/14 11/22/21 History Nitroglycerin Sl Tabs [Nitrostat] 0.4 mg SUBLINGUAL Q5M PRN 11/10/14 11/22/21 History Tamsulosin [Flomax] 0.4 mg PO DAILY 11/10/14 11/22/21 History lisinopriL [Zestril] 2.5 mg PO DAILY 11/10/14 11/22/21 History Aspirin EC [Ecotrin Low Dose] 81 mg PO DAILY 11/22/21 11/22/21 History Donepezil [Aricept] 5 mg PO DAILY 11/22/21 11/22/21 History Gabapentin 600 mg PO BID 11/22/21 11/22/21 History HYDROcodone/APAP 5-325MG [[place] 1 tab PO TID PRN 11/22/21 11/22/21 History 5-325] Insulin Glargine,Hum.rec.anlog 50 units SQ HS 11/22/21 11/22/21 History [Lantus Solostar Pen] Insulin NPH Hum/Reg Insulin Hm 30 unit SQ AC-SUPPER 11/22/21 11/22/21 History [Novolin 70-30 100 Unit/ml Vial] Metoprolol Tartrate [Lopressor] 50 mg PO HS 11/22/21 11/22/21 History Milnacipran HCl [Savella] 100 mg PO DAILY 11/22/21 11/22/21 History Montelukast Sodium [Singulair] 10 mg PO DAILY 11/22/21 11/22/21 History Allergies Allergy/AdvReac Type Severity Reaction Status Date / Time iodine Allergy Unknown Verified 11/22/21 12:44 Physical Exam Vitals: Vital Signs Temp Pulse Pulse Resp BP Pulse Ox 11/23/21 09:07 97.1 F L 64 18 139/72 96 11/23/21 04:10 97.7 F 73 19 108/49 98 11/23/21 00:44 97.9 F 78 20 117/82 97 11/22/21 20:20 97.3 F L 63 18 137/60 98 11/22/21 16:56 97.9 F 80 18 127/76 95 Intake and Output 11/22/21 11/23/21 11/23/21 22:59 06:59 14:59 Intake Total 2160 240 Output Total 600 Balance 1560 240 Intake: IV 1200 Sodium Chloride 0.9% 1, 1200 000 ml @ 100 mls/hr IV . Q10H [facility] Rx#:[id number] Oral 960 240 Output: Urine 600 Other: Voiding Method Toilet Toilet # Voids 2 Results 11/23/21 07:41 11/23/21 07:41 Cardiac Enzymes 11/23/21 11/23/21 Range/Units 07:41 10:31 Troponin I <0.012 <0.012 (0.000-0.034) ng/mL Lipids 11/22/21 Range/Units 06:59 Triglycerides 133.00 (0.00-149.00) mg/dL Cholesterol 140.00 (0.00-200.00) mg/dL HDL Cholesterol 40.40 (40.00-60.00) mg/dL Cholesterol/HDL Ratio 3.47 Ratio CBC 11/23/21 Range/Units 07:41 WBC 6.4 (3.8-10.6) k/uL RBC 4.97 (4.30-5.90) m/uL Hgb 15.0 (13.0-17.5) gm/dL Hct 47.7 (39.0-53.0) % Plt Count 288 (150-450) k/uL Comprehensive Metabolic Panel 11/23/21 Range/Units 07:41 Sodium 131 L (137-145) mmol/L Potassium 4.6 (3.5-5.1) mmol/L Chloride 99 (98-107) mmol/L Carbon Dioxide 28 (22-30) mmol/L BUN 13 (9-20) mg/dL Creatinine 0.63 L (0.66-1.25) mg/dL Glucose 92 (74-99) mg/dL Calcium 9.3 (8.4-10.2) mg/dL Current Medications Generic Name Dose Route Start Last Admin Trade Name Freq PRN Reason Stop Dose Admin Hydrocodone Bitart/Acetaminophen 1 each 11/22/21 20:27 11/23/21 06:34 Hydrocodone/Apap 5-325mg 1 Each Tab PO 1 each Q8HR PRN Administration Pain Aspirin 325 mg 11/22/21 09:00 11/23/21 09:09 Aspirin 325 Mg Tab PO 325 mg DAILY FABIANA Administration Atorvastatin Calcium 80 mg 11/24/21 09:00 Atorvastatin 80 Mg Tab PO DAILY FAIBANA Cholecalciferol 50 mcg 11/22/21 12:00 11/22/21 09:28 Cholecalciferol 25 Mcg (1000 Iu) Tablet PO 50 mcg DAILY@1200 [facility]ABIANA Administration Clopidogrel Bisulfate 75 mg 11/22/21 09:00 11/23/21 09:09 Clopidogrel 75 Mg Tab PO 75 mg DAILY [facility] Administration Doxazosin Mesylate 1 mg 11/22/21 09:00 11/23/21 09:10 Doxazosin 1 Mg Tab PO 1 mg DAILY [facility] Administration Famotidine 20 mg 11/23/21 09:00 11/23/21 09:09 Famotidine 20 Mg Tab PO 20 mg BID FABIANA Administration Finasteride 5 mg 11/22/21 09:00 11/23/21 09:09 Finasteride 5 Mg Tab PO 5 mg DAILY [facility] Administration Gabapentin 300 mg 11/22/21 09:00 11/23/21 09:09 Gabapentin 300 Mg Cap PO 300 mg DAILY [facility]NA Administration Heparin Sodium (Porcine) 5,000 unit 11/22/21 09:00 11/23/21 09:09 Heparin Sodium,Porcine/Pf 5,000 Unit/0.5 Ml Syringe SQ 5,000 unit Q12HR [facility] Administration Sodium Chloride 1,000 mls @ 100 mls/hr 11/21/21 22:45 11/22/21 14:41 Saline 0.9% IV 100 mls/hr .Q10H [facility] Administration Insulin Aspart 0 unit 11/22/21 21:00 11/23/21 06:34 Insulin Aspart (Novolog) 100 Unit/Ml Vial SQ 1 unit ACHS F[facility]NA Administration Protocol Insulin Detemir 50 unit 11/23/21 07:00 11/23/21 06:33 Insulin Detemir (Levemir) 100 Unit/Ml Syr SQ 50 unit DAILY@0700 FAB[facility]NA Administration Lisinopril 2.5 mg 11/22/21 09:00 11/23/21 09:09 Lisinopril 2.5 Mg Tab PO 2.5 mg DAILY F[facility]NA Administration Metoprolol Tartrate 50 mg 11/22/21 09:00 11/23/21 09:09 Metoprolol Tartrate 50 Mg Tab PO 50 mg BID F[facility]NA Administration Nitroglycerin 0.4 mg 11/21/21 22:43 Nitroglycerin Sl Tabs 0.4 Mg Tab SUBLINGUAL Q5M PRN CHEST PAIN Tamsulosin HCl 0.4 mg 11/22/21 09:00 11/23/21 09:09 Tamsulosin 0.4 Mg Cap.Er.24h PO 0.4 mg DAILY FAB[facility]NA Administration Intake and Output 11/22/21 11/23/21 11/23/21 22:59 06:59 14:59 Intake Total 2160 240 Output Total 600 Balance 1560 240 Intake: IV 1200 Sodium Chloride 0.9% 1, 1200 000 ml @ 100 mls/hr IV . Q10H [facility] Rx#:[id number] Oral 960 240 Output: Urine 600 Other: Voiding Method Toilet Toilet # Voids 2 11/23/21 07:41 11/23/21 07:41
--- NOTE | 2021-11-23 12:39 | P.PN ---
Subjective Progress Note Date: 11/23/21 I am seeing the patient for the first time during this admission. Please refer to Dr. Brown's note for further details. He stated he has been having eye pain, ear pain, unsteady walking for the past couple days. He denies of any headache or any focal deficits. Denies of any current visual disturbance. Objective - Vital Signs Vital signs: Vital Signs Temp 97.1 F L 11/23/21 09:07 Pulse 64 11/23/21 09:07 Resp 18 11/23/21 09:07 BP 139/72 11/23/21 09:07 Pulse Ox 96 11/23/21 09:07 FiO2 Intake & Output 11/22/21 11/23/21 11/23/21 18:59 06:59 18:59 Intake Total 2430 240 Output Total 600 Balance 1830 240 Intake: IV 1200 Sodium Chloride 0.9% 1, 1200 000 ml @ 100 mls/hr IV . Q10H [facility] Rx#:[id number] Oral 1230 240 Output: Urine 600 Other: Voiding Method Toilet Toilet # Voids 1 2 - Exam GENERAL: The patient is lying in bed and is not in acute distress. NEUROLOGICAL: Higher mental function: The patient is awake, alert, oriented to self, place and time. Patient is following commands. No aphasia and no neglect. Cranial nerves: The pupils are round, equal and reactive to light and accommodation. Visual leal are full to confrontation throughout. Extraocular movement is intact no nystagmus is noted. Facial sensation is normal to touch throughout. The facial strength is normal throughout. Hearing is mildly decreased bilaterally to hand rub. Tongue is midline and moved [id number] without any difficulty. No dysarthria is noted. Motor: The strength is 5 over 5 throughout. Normal tone and bulk. Cerebellum: Normal finger to nose bilaterally. Sensation: Sensation is normal to touch throughout. SOME OF THE WORK-UP IN OUR FACILITY CONSISTED OF: ESR is 4 CT brain is reported as mild atrophy. No acute intracranial abnormality. No change. 2-D echo was reported as left ventricular ejection fraction of 40-45%. Mild to apical septal hypokinesis. Left atrium normal in size. Lipid panel is triglyceride 133, cholesterol 140, LDL 73 and HDL 40. TSH is a 0.683 Hemoglobin A1c is 8.1 . - Labs CBC & Chem 7: 11/23/21 07:41 11/23/21 07:41 Labs: Abnormal Lab Results - Last 24 Hours (Table) 11/21/21 11/22/21 11/22/21 Range/Units 06:59 11:34 16:49 Sodium (137-145) mmol/L Creatinine (0.66-1.25) mg/dL POC Glucose (mg/dL) 124 H 48 L (70-110) mg/dL Hemoglobin A1c 8.1 H (0.0-6.0) % 11/22/21 11/23/21 11/23/21 Range/Units 20:12 06:10 07:41 Sodium 131 L (137-145) mmol/L Creatinine 0.63 L (0.66-1.25) mg/dL POC Glucose (mg/dL) 139 H 131 H (70-110) mg/dL Hemoglobin A1c (0.0-6.0) % 11/23/21 Range/Units 11:39 Sodium (137-145) mmol/L Creatinine (0.66-1.25) mg/dL POC Glucose (mg/dL) 152 H (70-110) mg/dL Hemoglobin A1c (0.0-6.0) % Assessment and Plan Assessment: The patient is a 76-year-old male who complains of pain in his eyes, ears, head and temples, unsteady gait. Unsure exact cause. Does not appear temporal arteritis (ESR is 4) Reported history of stroke and several TIAs Hyponatremia Diabetes mellitus and her most hemoglobin A1c is 8.1. History of hypertension Reported history of cardiac disease Plan: Ordered MRI Brain and C-spine w/ and w/o, Carotid duplex. Patient is currently on aspirin 325mg daily and Plavix 75mg daily. I recommend the patient to be on dual antiplatelets for 21 days and after 21 days stopped Plavix but continue aspirin indefinitely from a neurologic perspective. She is also on Lipitor 80mg daily. Cardiology is consulted by the primary team for chest discomfort PT OT and TOP LIFT COMPRESSOR are consulted Continue neuro checks Placed on cardiac monitoring Consider ophthalmology consultation for visual loss We'll defer the rest of the medical management to the primary team The plan is discussed with patient and his nurse. Paresh Hernandez M.D. Neuro-hospitalist Time with Patient: Less than 30
[2021-11-23 14:10] LABS: Erythrocyte Sedimentation Rate 8 mm/hr (0-15)
--- NOTE | 2021-11-23 14:27 | US ---
EXAMINATION TYPE: US carotid duplex BILAT DATE OF EXAM: 11/23/2021 COMPARISON: NONE CLINICAL HISTORY: stroke. TIA EXAM MEASUREMENTS: RIGHT: Peak Systolic Velocity (PSV) cm/sec ----- Right CCA: 85.8 ----- Right ICA: 102 ----- Right ECA: 96.7 ICA/CCA ratio: 1.1 RIGHT: End Diastole cm/sec ----- Right CCA: 92.0 ----- Right ICA: 125 ----- Right ECA: 97.6 LEFT: Peak Systolic Velocity (PSV) cm/sec ----- Left CCA: 8.2 ----- Left ICA: 16.8 ----- Left ECA: 8.0 ICA/CCA ratio: 1.3 LEFT: End Diastole cm/sec ----- Left CCA: 8.2 ----- Left ICA: 16.8 ----- Left ECA: 8.0 VERTEBRALS (direction of flow): Right Vertebral: Antegrade Left Vertebral: Antegrade Rhythm: Normal Heterogeneous plaque seen bilaterally, no significant stenosis seen. IMPRESSION: Less than 50% stenosis of the carotid bifurcations. Criteria for Assigning % of Stenosis / Diameter reduction (Estimation based on the indirect measurements of the internal carotid artery velocities (ICA PSV). 1. Normal (no stenosis)=ICA PSV < 125 cm/s: ratio < 2.0: ICA EDV<40 cm/s. 2. Less than 50% stenosis=ICA PSV < 125 cm/s: ratio < 2.0: ICA EDV<40 cm/s. 3. 50 to 69% stenosis=ICA PSV of 125 to 230 cm/s: ration 2.0 ? 4.0: ICA EDV 40-100 cm/s. 4. Greater than 70% stenosis to near occlusion= ICA PSV > 230 cm/s: ratio > 4.0: ICA EDV > 100 cm/s. 5. Near occlusion= ICA PSV velocities may be low or undetectable: variable ratio and ICA EDV. 6. Total occlusion=unable to detect flow.
[2021-11-23] MEDS: SODIUM CHLORIDE 0.9% 1,000 ML IV SCH ×2 (14:37→16:29)
--- NOTE | 2021-11-23 14:52 | P.PN ---
Subjective Progress Note Date: 11/23/21 This is a 76-year-old gentleman reporting right sided headache sometimes extending into his right ear, blurred vision of right eye, unsteady gait. Denies muscle strength loss, reports history of carpal tunnel left wrist, denies numbness and multiple other medical issues in a patient with history of TIAs, C VA, CAD, NC,DM, ongoing nicotine dependence. Denies chest pain, palpitations or shortness of breath. Reports his headaches fluctuate, denies history of migraines. Currently denies visual disturbances, headaches, lightheadedness, dizziness or any focal deficits. Complains of chronic back pain. Denies changes in bladder or bowel habits. Sodium improved to 131, afebrile, normal WBC. Denies chest pain, palpitations or shortness of breath, troponins negative 3. Blood sugars controlled, hemoglobin A1c of 8.1. Echo reported left ventricular EF of 40-45%, mild apical septum hypokinesis, small pericardial effusion without tamponade, aortic root dilation measuring 4 cm.ESR 4,8. Objective - Vital Signs Vital signs: Vital Signs Temp 97.8 F 11/23/21 12:40 Pulse 63 11/23/21 12:40 Resp 16 11/23/21 12:40 BP 134/65 11/23/21 12:40 Pulse Ox 97 11/23/21 12:40 FiO2 Intake & Output 11/22/21 11/23/21 11/23/21 18:59 06:59 18:59 Intake Total 2430 240 Output Total 600 Balance 1830 240 Intake: IV 1200 Sodium Chloride 0.9% 1, 1200 000 ml @ 100 mls/hr IV . Q10H [facility] Rx#:[id number] Oral 1230 240 Output: Urine 600 Other: Voiding Method Toilet Toilet Toilet # Voids 1 2 - Exam PHYSICAL EXAM: VITAL SIGNS: As above GENERAL: Sitting up in bed, no acute distress. Conversing fluently and appro priately. HEENT: Conjunctivae normal. eyes normal. MMM. NECK: No JVD. No thyroid enlargement. No LNs CARDIOVASCULAR: S1, S2 regular.. No murmur RESPIRATION: Breath sounds diminished in the bases. No rhonchi or crackles. No bronchial breathing. ABDOMEN: Soft, nontender . No guarding. no masses palpable. No ascites, No hepatosplenomegaly.Bowel sounds heard. LEGS: No edema. no swelling PSYCHIATRY: Alert and oriented X3, mood and affect normal. NERVOUS SYSTEM: Cranial N 2-12 grossly normal. Moves all 4 limbs. No focal deficits. Strength and sensation grossly intact. Skin: Warm and dry, no rash - Labs CBC & Chem 7: 11/23/21 07:41 11/23/21 07:41 Labs: Abnormal Lab Results - Last 24 Hours (Table) 11/21/21 11/22/21 11/22/21 Range/Units 06:59 16:49 20:12 Sodium (137-145) mmol/L Creatinine (0.66-1.25) mg/dL POC Glucose (mg/dL) 48 L 139 H (70-110) mg/dL Hemoglobin A1c 8.1 H (0.0-6.0) % 11/23/21 11/23/21 11/23/21 Range/Units 06:10 07:41 11:39 Sodium 131 L (137-145) mmol/L Creatinine 0.63 L (0.66-1.25) mg/dL POC Glucose (mg/dL) 131 H 152 H (70-110) mg/dL Hemoglobin A1c (0.0-6.0) % Assessment and Plan Assessment: Cephalgia accompanied by blurred vision, ear pain. Doubt temporal arteritis, ESR 4,8.Etiology unclear. History of CVA, TIAs Hyponatremia Hypertension CAD, history of NC Aortic root 4 cm, further monitoring outpatient Diabetes mellitus, A1c 8.1 Plan: Continue on current medication regime ,monitoring and symptomatic treatment. Maintained on Plavix , aspirin, statin. Continue neuro checks. Neurology testing in progress including MRI of brain/C-spine,carotid Doppler pending. Close monitoring of electrolytes with repeat labs ordered for a.m. evaluated by PT OT with recommendations of discharge home. Ophthalmology consulted for vision loss. The impression and plan of care has been dictated as directed. : I performed a history and examination of this patient, discussed the same with the dictator. I agree with the dictator's note ,documented as a scribe. Any additional findings or plans will be noted.
[2021-11-23 17:11] LABS: Glucose,Whole Blood 102 mg/dL (70-110)
[2021-11-23] MEDS: CHOLECALCIFEROL 25 MCG (1000 IU) TABLET PO SCH (17:24)
--- NOTE | 2021-11-23 19:49 | MR ---
EXAMINATION TYPE: MR brain/cspine wo/w DATE OF EXAM: 11/23/2021 COMPARISON: None HISTORY: Visual disturbance, unsteady gait. CONTRAST: Standard multiplanar, multisequence MRI departmental protocol images were obtained without contrast a nd with 8.5 mL intravenous Gadavist gadolinium contrast. There is cerebral cortical atrophy. There is no mass effect or midline shift. No sign of intracranial hemorrhage. There is thinning of the corpus callosum. Diffusion images show no evidence of an acute cerebral infarct. There is some linear increased signal in the periventricular white matter consisten t with age-related white matter disease. There are scattered white matter high signal foci at the gra y-white matter junction of posterior bilateral hemispheres that measure up to 5 mm. Total number is a pproximately 15 and these are mostly in the parietal lobes. The brainstem is intact. Cerebellum is in tact. There is sphenoid sinus mucosal thickening. Contrast images show no pathologic intracranial enh ancement. There is normal enhancement of the venous sinuses. The cervical vertebra have normal alignment. There is some degenerative disc space narrowing at C4-5 and C5-6 and C6-7 with mild disc bulging. Cervical spinal cord shows no edema. Spinal canal measures 7 mm at C4-5 and C5-6 which is the narrowest point. The facet joints are intact. No subluxation. No c ompression fracture. No pathologic enhancement in the cervical spine. There is a 2.7 x 1 cm elongated nonenhancing benign appearing mass in the posterior soft tissues of t he mid cervical spine within the rectus muscle that is probably lipoma. IMPRESSION: Cervical spine shows multilevel spondylotic changes. No fracture. No significant spinal stenosis. Sma ll posterior disc bulging and herniation from C4 to C7. No significant impingement on the spinal cord . Cerebral atrophy and age-related white matter changes. Multiple small scattered white matter parietal high signal foci likely related to microvascular ischemia. No evidence of an acute cerebral infarct. No acute intracranial abnormality.
[2021-11-23 20:02] LABS: Glucose,Whole Blood 186 mg/dL (70-110)
[2021-11-24] MEDS: HYDROcodone/APAP 5-325MG 1 EACH TAB PO PRN (04:08)
[2021-11-24 06:12] LABS: Glucose,Whole Blood 163 mg/dL (70-110)
[2021-11-24] MEDS: INSULIN DETEMIR (LEVEMIR) 100 UNIT/ML SYR SQ SCH (06:36)
[2021-11-24] MEDS: INSULIN ASPART (NovoLOG) 100 UNIT/ML VIAL SQ SCH ×2 (06:36→11:44)
[2021-11-24 08:37] VITALS: TEMP 97.4
[2021-11-24 08:39] LABS: African American GFR (CKD) >90 (>60 ml/min/1.73 sqM); Anion Gap 7 mmol/L; Blood Urea Nitrogen 11 mg/dL (9-20); Calcium 9.3 mg/dL (8.4-10.2); Carbon Dioxide 27 mmol/L (22-30); Chloride 95 mmol/L (98-107); Glucose 158 mg/dL (74-99); Magnesium 1.7 mg/dL (1.6-2.3); Non-African American GFR(CKD) >90 (>60 ml/min/1.73 sqM); Potassium 4.4 mmol/L (3.5-5.1); Sodium 129 mmol/L (137-145)
[2021-11-24] MEDS: METOPROLOL TARTRATE 50 MG TAB PO SCH (08:57)
[2021-11-24] MEDS: DOXAZOSIN 1 MG TAB PO SCH (08:57)
[2021-11-24] MEDS: ASPIRIN 325 MG TAB PO SCH (08:57)
[2021-11-24] MEDS: TAMSULOSIN 0.4 MG CAP.ER.24H PO SCH (08:57)
[2021-11-24] MEDS: HEPARIN SODIUM,PORCINE/PF 5,000 UNIT/0.5 ML SYRINGE SQ SCH (08:57)
[2021-11-24] MEDS: FINASTERIDE 5 MG TAB PO SCH (08:58)
[2021-11-24] MEDS: CLOPIDOGREL 75 MG TAB PO SCH (08:58)
[2021-11-24] MEDS: FAMOTIDINE 20 MG TAB PO SCH (08:58)
[2021-11-24] MEDS: CHOLECALCIFEROL 25 MCG (1000 IU) TABLET PO SCH (08:58)
[2021-11-24] MEDS: GABAPENTIN 300 MG CAP PO SCH (08:58)
[2021-11-24] MEDS ORDERED: ATORVASTATIN 80 MG TAB PO SCH (09:00)
[2021-11-24] MEDS ORDERED: ATORVASTATIN 40 MG TAB PO SCH (09:00)
[2021-11-24 11:51] VITALS: BP 131/66; PULSE 65; RESP 16
[2021-11-24 11:52] LABS: Glucose,Whole Blood 58 mg/dL (70-110)
[2021-11-24 12:06] LABS: Glucose,Whole Blood 82 mg/dL (70-110)
[2021-11-24 12:06] LABS: Glucose,Whole Blood 52 mg/dL (70-110)
--- NOTE | 2021-11-24 14:48 | P.PN ---
Subjective Progress Note Date: 11/24/21 Patient is seen at bedside and feels he is doing better. Denies of any new neurological issues. Objective - Vital Signs Vital signs: Vital Signs Temp 97.4 F L 11/24/21 08:00 Pulse 65 11/24/21 11:49 Resp 16 11/24/21 11:49 BP 131/66 11/24/21 11:49 Pulse Ox 98 11/24/21 11:49 FiO2 Intake & Output 11/23/21 11/24/21 11/24/21 18:59 06:59 18:59 Intake Total 702 120 180 Output Total 222 Balance 702 -102 180 Intake: Oral 702 120 180 Output: Urine 222 Other: Voiding Method Toilet Toilet Toilet # Voids 2 - Exam GENERAL: The patient is lying in bed and is not in acute distress. NEUROLOGICAL: Higher mental function: The patient is awake, alert, oriented to self, place and time. Patient is following commands. No aphasia and no neglect. Cranial nerves: The pupils are round, equal and reactive to light and accommodation. Visual leal are full to confrontation throughout. Extraocular movement is intact no nystagmus is noted. Facial sensation is normal to touch throughout. The facial strength is normal throughout. Hearing is mildly decreased bilaterally to hand rub. Tongue is midline and moved [id number] wi thout any difficulty. No dysarthria is noted. Motor: The strength is 5 over 5 throughout. Normal tone and bulk. Cerebellum: Normal finger to nose bilaterally. Sensation: Sensation is normal to touch throughout. SOME OF THE WORK-UP IN OUR FACILITY CONSISTED OF: ESR is 4 TSH is a 0.683 Hemoglobin A1c is 8.1 Lipid panel is triglyceride 133, cholesterol 140, LDL [address] brain is reported as mild atrophy. No acute intracranial abnormality. No change. 2-D echo was reported as left ventricular ejection fraction of 40-45%. Mild to apical septal hypokinesis. Left atrium normal in size. MRI the brain w/ and w/o is reported as cerebral atrophy and age-related white matter changes. Multiple small scattered white matter parietal high signal foci likely related to microvascular ischemia. No evidence of acute cerebral infarct. No acute intracranial abnormality. MRI of the cervical spine is reported as cervical spine shows multilevel spondylitic changes. No fracture. No significant spinal stenosis. Small posterior disc bulging and herniation from C4 to C6. No significant impingement on the spinal cord that. Carotid duplex is reported as less than 50% stenosis of the carotid bifurcation. - Labs CBC & Chem 7: 11/23/21 07:41 11/24/21 08:03 Labs: Abnormal Lab Results - Last 24 Hours (Table) 11/23/21 11/24/21 11/24/21 Range/Units 20:02 06:11 08:03 Sodium 129 L (137-145) mmol/L Chloride 95 L (98-107) mmol/L Creatinine 0.59 L (0.66-1.25) mg/dL Glucose 158 H (74-99) mg/dL POC Glucose (mg/dL) 186 H 163 H (70-110) mg/dL 11/24/21 11/24/21 Range/Units 11:42 11:52 Sodium (137-145) mmol/L Chloride (98-107) mmol/L Creatinine (0.66-1.25) mg/dL Glucose (74-99) mg/dL POC Glucose (mg/dL) 58 L 52 L (70-110) mg/dL Assessment and Plan Assessment: The patient is a 76-year-old male who complains of pain in his eyes, ears, head and temples, unsteady gait. Unsure exact cause. Does not appear temporal arteritis (ESR is 4). This is not a stroke and it does not appear like a TIA. Episode of hypoglycemia as low as 52 during this admission Reported history of stroke and several TIAs Hyponatremia Diabetes mellitus and her most hemoglobin A1c is 8.1. History of hypertension Reported history of cardiac disease Plan: Patient is currently on aspirin 325mg daily and Plavix 75mg daily. I recommend the patient to be on dual antiplatelets for 21 days and after 21 days stopped Plavix but continue aspirin indefinitely from a neurologic perspective. He is also on Lipitor 80mg daily. From a neurologic perspective he does not need to be on Lipitor 80 mg and can be reduced to 40 Cardiology is consulted by the primary team for chest discomfort PT OT and CREW LEADER are consulted Continue neuro checks On cardiac monitoring Consider ophthalmology consultation Please avoid any further hypoglycemic event We'll defer the rest of the medical management to the primary team I highly recommend the patient follow up with a neurologist as well as consideration of rheumatologists as an outpatient within 1-2 weeks The plan is discussed with patient and his nurse. There is no additional neurological workup and the patient is clear for discharge from a neurologic perspective. Paresh Hernandez M.D. Neuro-hospitalist Time with Patient: Less than 30
[2021-11-24 14:53] LABS: Glucose,Whole Blood 184 mg/dL (70-110)
--- NOTE | 2021-11-25 09:24 | CDI ---
Documentation Clarification Form Date: 11/25/21 From: Natalie Em Admit Date: 11/21/2021 10:41:00 PM Patient Name: Smith Moreno Visit Number: [id number] Discharge Date: 11/24/2021 03:14:00 PM ATTENTION: The Clinical Documentation Specialists (CDI) and [facility] Coding Staff appreciate your assistance in clarifying documentation. Please respond to the clarification below the line at the bottom and electronically sign. The CDI & [facility] Coding staff will review the response and follow-up if needed. Please note: Queries are made part of the Legal Health Record. If you have any questions, please contact the author of this message via ITS. Dr. Enrrique Juan, Cephalgia accompanied by blurred vision and ear pain is documented in your 11/23 PN, but is not noted in subsequent documentation. Clarification is requested. History/Risk Factors: migraines, hx of TIA/CVA, SVT, hyponatremia, T2DM w hyperglycemia and hypoglycemia, dementia Clinical Indicators: Per Dr Hernandez - The patient is a 76-year-old male who complains of pain in his eyes, ears, head and temples, unsteady gait. Does not appear temporal arteritis (ESR is 4). This is not a stroke and it does not appear like a TIA. Treatment: ESR, added Plavix 75 mg daily after 21 days stopped Plavix but continue aspirin indefinitely from a neurologic perspective. He is also on Lipitor 80mg daily. From a neurologic perspective he does not need to be on Lipitor 80 mg and can be reduced to 40 Please clarify if the [insert diagnosis] is: [ ] Migraines [ ] TIA [ ] Other condition, please specify [ ] Unable to determine Migraines MTDD
== END 2021-11-24 15:14 | disposition home or self-care (01) | DRG 103 ==
LOC: EC 18:53 → 3SCARD 22:41
PROVIDERS: ADMIT Family Medicine; ATTEND Family Medicine
DX: G43.909 Migraine, unspecified, not intractable, without status migrainosus (principal); I31.3 Pericardial effusion (noninflammatory); I47.1 Supraventricular tachycardia; E87.1 Hypo-osmolality and hyponatremia; E11.649 Type 2 diabetes mellitus with hypoglycemia without coma; F03.90 Unspecified dementia, unspecified severity, without behavioral disturbance, psychotic disturbance, mood disturbance, and anxiety; G31.9 Degenerative disease of nervous system, unspecified; E11.65 Type 2 diabetes mellitus with hyperglycemia; Z79.4 Long term (current) use of insulin; I25.82 Chronic total occlusion of coronary artery; I10 Essential (primary) hypertension; E86.1 Hypovolemia; I44.0 Atrioventricular block, first degree; E78.5 Hyperlipidemia, unspecified; I25.10 Atherosclerotic heart disease of native coronary artery without angina pectoris; I25.5 Ischemic cardiomyopathy; G89.29 Other chronic pain; M54.9 Dorsalgia, unspecified; H54.62 Unqualified visual loss, left eye, normal vision right eye; I25.2 Old myocardial infarction; M54.2 Cervicalgia; H92.03 Otalgia, bilateral; H57.10 Ocular pain, unspecified eye; R26.2 Difficulty in walking, not elsewhere classified; F17.210 Nicotine dependence, cigarettes, uncomplicated; Z71.6 Tobacco abuse counseling; Z79.82 Long term (current) use of aspirin; Z79.899 Other long term (current) drug therapy; Z60.2 Problems related to living alone; Z86.73 Personal history of transient ischemic attack (TIA), and cerebral infarction without residual deficits; Z96.60 Presence of unspecified orthopedic joint implant; Z88.8 Allergy status to other drugs, medicaments and biological substances
CPT/HCPCS: 36415; 70450; 70553; 71046; 72156; 80048; 80053; 80061; 83036; 83735; 84443; 84484; 85025; 85610; 85652; 85730; 93005; 93306; 93880; 96374; 96375; 99285

== ENCOUNTER 2024-04-11 17:08 | Emergency (ER) | payer MEDICARE ==
[2024-04-11 17:21] LABS: Glucose,Whole Blood 120 mg/dL (70-110)
[2024-04-11 17:55] LABS: Basophils # (A) 0.1 k/uL (0-0.2); Basophils % (A) 1 %; Eosinophils # (A) 0.3 k/uL (0-0.7); Eosinophils % (A) 3 %; HCT 53.8 % (39.0-53.0); HGB 17.8 gm/dL (13.0-17.5); Lymphocytes # (A) 2.2 k/uL (1.0-4.8); Lymphocytes % (A) 24 %; MCHC 33.2 g/dL (31.0-37.0); MCV 93.5 fL (80.0-100.0); Mean Platelet Volume 7.8; Monocytes # (A) 0.5 k/uL (0-1.0); Monocytes % (A) 6 %; Neutrophils # (A) 5.7 k/uL (1.3-7.7); Neutrophils % (A) 64 %; Platelet Count 223 k/uL (150-450); RBC 5.75 m/uL (4.30-5.90); RDW 12.9 % (11.5-15.5); WBC 8.8 k/uL (3.8-10.6)
[2024-04-11 17:57] LABS: Appearance,Urine Clear (Clear); Bilirubin,Urine Negative (Negative); Blood,Urine Negative (Negative); Color,Urine Colorless; Glucose,Urine (UA) 4+ (Negative); Ketones,Urine Negative (Negative); Leukocyte Esterase,Urine Negative (Negative); Nitrite,Urine Negative (Negative); PH, Urine 6.5 (5.0-8.0); Protein,Urine Negative (Negative); Specific Gravity,Urine 1.004 (1.001-1.035); Urobilinogen,Urine <2.0 mg/dL (<2.0)
[2024-04-11 18:09] LABS: INR 0.9 (<1.2); Partial Thromboplastin Time 24.9 sec (22.0-30.0); Prothrombin Time 10.4 sec (10.0-12.5)
[2024-04-11 18:11] LABS: ALT 29 U/L (4-49); AST 25 U/L (17-59); African American GFR (CKD) >90 (>60 ml/min/1.73 sqM); Albumin 4.6 g/dL (3.5-5.0); Alkaline Phosphatase 31 U/L (38-126); Anion Gap 5 mmol/L; Blood Urea Nitrogen 14 mg/dL (9-20); Calcium 9.8 mg/dL (8.4-10.2); Carbon Dioxide 26 mmol/L (22-30); Chloride 102 mmol/L (98-107); Glucose 121 mg/dL (74-99); Non-African American GFR(CKD) >90 (>60 ml/min/1.73 sqM); Potassium 4.4 mmol/L (3.5-5.1); Sodium 133 mmol/L (137-145); Total Bilirubin 0.7 mg/dL (0.2-1.3); Total Protein 7.6 g/dL (6.3-8.2)
--- NOTE | 2024-04-11 18:21 | XR ---
EXAMINATION TYPE: XR chest 2V DATE OF EXAM: 04/11/2024 CLINICAL HISTORY: Weakness TECHNIQUE: Frontal and lateral views of the chest are obtained. COMPARISON: Prior chest x-ray November 21, 2021 FINDINGS: There is mild chronic parenchymal change without suspicious new focal air space opacity, p leural effusion, or pneumothorax seen. The cardiac silhouette size is stable within normal limits. S urgical change to the medial right humeral head is redemonstrated. Old fracture deformity distal left clavicle again seen. IMPRESSION: No acute cardiopulmonary process. No significant change from most recent prior. [facility], , 04/11/2024 6:19 PM
--- NOTE | 2024-04-11 19:19 | ED ---
General Adult HPI - General Chief complaint: Weakness Stated complaint: poss stroke Time Seen by Provider: 04/11/24 18:47 Source: patient Mode of arrival: wheelchair Limitations: no limitations - History of Present Illness Initial comments: Dictation was produced using [employer] dictation software. please excuse any grammatical, word or spelling errors. Chief Complaint: 78-year-old male presents with chest pain, left facial drooling and concerns of CVA History of Present Illness: Patient 78-year-old male states he was feeling sick today. Couple weeks ago he was seen by an national accounts sales who was concerned that patient had a CVA. He had an national accounts sales working on ordering him an outpatient MRI. States that today he started to feel like his head started shaking in his left lower face was drooling. Also started to have some episodes of intermittent substernal chest pain. Patient states that his symptoms of drooling and shaking his head had gone. Patient is worried that he might be having a stroke. The ROS documented in this emergency department record has been reviewed and confirmed by me. Those systems with pertinent positive or negative responses have been documented in the HPI. All other systems are other negative and/or noncontributory. - Related Data Home Medications Medication Instructions Recorded Confirmed Atorvastatin [Lipitor] 20 mg PO HS 11/10/14 04/11/24 Finasteride [Proscar] 5 mg PO DAILY 11/10/14 04/11/24 Gabapentin 600 mg PO BID 11/22/21 04/11/24 HYDROcodone/APAP 5-325MG [Magnolia 1 tab PO TID PRN 11/22/21 04/11/24 5-325] Insulin Glargine,Hum.rec.anlog 30 - 40 units SQ HS 11/22/21 04/11/24 [Lantus Solostar Pen] Metoprolol Tartrate [Lopressor] 50 mg PO BID 11/22/21 04/11/24 Empagliflozin [Jardiance] 10 mg PO HS 04/11/24 04/11/24 Insulin Aspart [NovoLOG Flexpen] See Protocol SQ BID-W/MEALS 04/11/24 04/11/24 Isosorbide Mononitrate ER [Imdur] 30 mg PO DAILY 04/11/24 04/11/24 Otc Sinus Tabs(Unknown) 2 tab PO DAILY PRN 04/11/24 04/11/24 Allergies Allergy/AdvReac Type Severity Reaction Status Date / Time iodine Allergy Unknown Verified 04/11/24 20:11 Review of Systems ROS Statement: Those systems with pertinent positive or pertinent negative responses have been documented in the HPI. ROS Other: All systems not noted in ROS Statement are negative. Past Medical History Past Medical History: CVA/TIA, Diabetes Mellitus, Myocardial Infarction (NC) Last Myocardial Infarction Date:: 2004 History of Any Multi-Drug Resistant Organisms: None Reported Past Surgical History: Bowel Resection, Joint Replacement Additional Past Surgical History / Comment(s): adrenalectomy Past Psychological History: No Psychological Hx Reported Smoking Status: Current every day smoker Past Alcohol Use History: None Reported Past Drug Use History: None Reported General Exam - General Exam Comments Initial Comments: PHYSICAL EXAM: General Impression: Alert and oriented x3, not in acute distress HEENT: Normocephalic atraumatic, extra-ocular movements intact, pupils equal and reactive to light bilaterally, mucous membranes moist. Cardiovascular: Heart regular rate and rhythm Chest: Able to complete full sentences, no retractions, no tachypnea Abdomen: abdomen soft, non-tender, non-distended, no organomegaly Musculoskeletal: Pulses present and equal in all extremities, no peripheral edema Motor: no focal deficits noted Neurological: CN II-XII grossly intact, no focal motor or sensory deficits noted Skin: Intact with no visualized rashes Psych: Normal affect and mood Limitations: no limitations Course Vital Signs 04/11/24 04/11/24 04/11/24 17:16 19:01 20:37 Temperature 98.2 F Pulse Rate 68 67 65 Respiratory 20 18 20 Rate Blood Pressure 160/74 140/70 154/86 O2 Sat by Pulse 97 93 L 96 Oximetry Medical Decision Making - Medical Decision Making Was pt. sent in by a medical professional or institution (, PA, SENIOR PROJECT CONTROLS SPECIALIST, urgent care, hospital, or senior care...) When possible be specific @ -No Did you speak to anyone other than the patient for history (EMS, parent, family, police, friend...)? What history was obtained from this source @ -No Did you review nursing and triage notes (agree or disagree)? Why? @ -I reviewed and agree with nursing and triage notes Were old charts reviewed (outside hosp., previous admission, EMS record, old EKG, old radiological studies, urgent care reports/EKG's, senior care records)? Report findings @ -No old charts were reviewed Differential Diagnosis (chest pain, altered mental status, abdominal pain women, abdominal pain men, vaginal bleeding, musculoskeletal, weakness, fever, dyspnea, syncope, headache, dizziness, GI bleed, back pain, seizure, CVA, palpatations, mental health)? @ -Differential Weakness: Hypoglycemia, shock, sepsis, hyponatremia, anemia, infection, NC, ETOH, adverse medicine reaction, overdose, stroke, this is not meant to be an all-inclusive list. EKG interpreted by me (3pts min.). @ -My EKG interpretation: Ventricular rate 66, sinus rhythm,. Will 232, cures 108, QTc 4 4. No GA prolongation, no QTC prolongation, no ST or T-wave changes noted. Overall, this EKG is unremarkable X-rays interpreted by me (1pt min.). @ -X-ray of the chest is nonacute CT interpreted by me (1pt min.). @ -CT scan the brain CT angiography of the head and neck shows no acute processes. U/S interpreted by me (1pt. min.). @ -None done What testing was considered but not performed or refused? (CT, X-rays, U/S, labs)? Why? @ -None What meds were considered but not given or refused? Why? @ -None Was smoking cessation discussed for >3mins.? @ -No Were there social determinants of health that impacted care today? How? (Homelessness, low income, unemployed, alcoholism, drug addiction, t ransportation, low edu. Level, literacy, decrease access to med. care, assisted, rehab)? @ -No Was there de-escalation of care discussed even if they declined (Discuss DNR or withdrawal of care, Hospice)? DNR status @ -No What co-morbidities impacted this encounter? (DM, HTN, Smoking, COPD, CAD, Cance r, CVA, ARF, Chemo, Hep., AIDS, mental health diagnosis, sleep apnea, morbid obesity)? @ -None Was patient admitted / discharged? Hospital course, mention meds given and route, prescriptions, significant lab abnormalities, going to OR and other pertinent info. @ -78-year-old male with chronic weakness and chronic fatigue and fibromyalgia presents to the emergency department with episode of weakness and shaking of his head along with what he describes as drooling coming from his left mouth. Feliciano espinoza was concerned he had a stroke because national accounts sales had scheduled to an MRI for him done outpatient. States that appoint was 2 weeks ago. Patient denies any acute symptoms at the bedside. States that he feels as fatigued as he normally does. Vital signs are stable. Laboratory evaluation obtained showing no acute processes. Imaging studies are negative. Patient offered observation admission with consultation to neurology refused prefer to be discharged follow-up with his outpatient doctors. Did you discuss the management of the patient with other professionals (professionals i.e. , FELICIANO, SENIOR PROJECT CONTROLS SPECIALIST, lab, RT, psych nurse, geriatric social work professor, shaper hand, teacher, security patrol officer, showcase trimmer)? Give summary @ -No Was critical care preformed (if so, how long)? @ -No Undiagnosed new problem with uncertain prognosis? @ -No Drug Therapy requiring intensive monitoring for toxicity (Heparin, Nitro, Insulin, Cardizem)? @ -No Were any procedures done? @ -No Diagnosis/symptom? Acute, or Chronic, or Acute on Chronic? Uncomplicated (without systemic symptoms) or Complicated (systemic symptoms)? @ -Generalized weakness Side effects of treatment? @ -No Exacerbation, Progression, or Severe Exacerbation? @ -No Poses a threat to life or bodily function? How? (Chest pain, USA, NC, pneumonia, PE, COPD, DKA, ARF, appy, cholecystitis, CVA, Diverticulitis, Homicidal, Suicidal, threat to staff... and all critical care pts) @ -No - Lab Data Result diagrams: 04/11/24 17:45 04/11/24 17:45 Lab Results 04/11/24 04/11/24 04/11/24 Range/Units 17:19 17:45 17:45 WBC 8.8 (3.8-10.6) k/uL RBC 5.75 (4.30-5.90) m/uL Hgb 17.8 H (13.0-17.5) gm/dL Hct 53.8 H (39.0-53.0) % MCV 93.5 (80.0-100.0) fL MCH 31.0 (25.0-35.0) pg MCHC 33.2 (31.0-37.0) g/dL RDW 12.9 (11.5-15.5) % Plt Count 223 (150-450) k/uL MPV 7.8 Neutrophils % 64 % Lymphocytes % 24 % Monocytes % 6 % Eosinophils % 3 % Basophils % 1 % Neutrophils # 5.7 (1.3-7.7) k/uL Lymphocytes # 2.2 (1.0-4.8) k/uL Monocytes # 0.5 (0-1.0) k/uL Eosinophils # 0.3 (0-0.7) k/uL Basophils # 0.1 (0-0.2) k/uL PT 10.4 (10.0-12.5) sec INR 0.9 (<1.2) APTT 24.9 (22.0-30.0) sec Sodium (137-145) mmol/L Potassium (3.5-5.1) mmol/L Chloride (98-107) mmol/L Carbon Dioxide (22-30) mmol/L Anion Gap mmol/L BUN (9-20) mg/dL Creatinine (0.66-1.25) mg/dL Est GFR (CKD-EPI)AfAm (>60 ml/min/1.73 sqM) Est GFR (CKD-EPI)NonAf (>60 ml/min/1.73 sqM) Glucose (74-99) mg/dL POC Glucose (mg/dL) 120 H (70-110) mg/dL POC Glu Skeet Operator NM Lalo Oneill Plasma Lactic Acid Balaji (0.7-2.0) mmol/L Calcium (8.4-10.2) mg/dL Total Bilirubin (0.2-1.3) mg/dL AST (17-59) U/L ALT (4-49) U/L Alkaline Phosphatase (38-126) U/L Troponin I (0.000-0.034) ng/mL Total Protein (6.3-8.2) g/dL Albumin (3.5-5.0) g/dL Urine Color Urine Appearance (Clear) Urine pH (5.0-8.0) Ur Specific [place] (1.001-1.035) Urine Protein (Negative) Urine Glucose (UA) (Negative) Urine Ketones (Negative) Urine Blood (Negative) Urine Nitrite (Negative) Urine Bilirubin (Negative) Urine Urobilinogen (<2.0) mg/dL Ur Leukocyte Esterase (Negative) 04/11/24 04/11/24 04/11/24 Range/Units 17:45 17:45 17:45 WBC (3.8-10.6) k/uL RBC (4.30-5.90) m/uL Hgb (13.0-17.5) gm/dL Hct (39.0-53.0) % MCV (80.0-100.0) fL MCH (25.0-35.0) pg MCHC (31.0-37.0) g/dL RDW (11.5-15.5) % Plt Count (150-450) k/uL MPV Neutrophils % % Lymphocytes % % Monocytes % % Eosinophils % % Basophils % % Neutrophils # (1.3-7.7) k/uL Lymphocytes # (1.0-4.8) k/uL Monocytes # (0-1.0) k/uL Eosinophils # (0-0.7) k/uL Basophils # (0-0.2) k/uL PT (10.0-12.5) sec INR (<1.2) APTT (22.0-30.0) sec Sodium 133 L (137-145) mmol/L Potassium 4.4 (3.5-5.1) mmol/L Chloride 102 (98-107) mmol/L Carbon Dioxide 26 (22-30) mmol/L Anion Gap 5 mmol/L BUN 14 (9-20) mg/dL Creatinine 0.65 L (0.66-1.25) mg/dL Est GFR (CKD-EPI)AfAm >90 (>60 ml/min/1.73 sqM) Est GFR (CKD-EPI)NonAf >90 (>60 ml/min/1.73 sqM) Glucose 121 H (74-99) mg/dL POC Glucose (mg/dL) (70-110) mg/dL POC Glu Skeet Operator ID Plasma Lactic Acid Balaji 1.0 (0.7-2.0) mmol/L Calcium 9.8 (8.4-10.2) mg/dL Total Bilirubin 0.7 (0.2-1.3) mg/dL AST 25 (17-59) U/L ALT 29 (4-49) U/L Alkaline Phosphatase 31 L (38-126) U/L Troponin I <0.012 (0.000-0.034) ng/mL Total Protein 7.6 (6.3-8.2) g/dL Albumin 4.6 (3.5-5.0) g/dL Urine Color Urine Appearance (Clear) Urine pH (5.0-8.0) Ur Specific [place] (1.001-1.035) Urine Protein (Negative) Urine Glucose (UA) (Negative) Urine Ketones (Negative) Urine Blood (Negative) Urine Nitrite (Negative) Urine Bilirubin (Negative) Urine Urobilinogen (<2.0) mg/dL Ur Leukocyte Esterase (Negative) 04/11/24 Range/Units 17:45 WBC (3.8-10.6) k/uL RBC (4.30-5.90) m/uL Hgb (13.0-17.5) gm/dL Hct (39.0-53.0) % MCV (80.0-100.0) fL MCH (25.0-35.0) pg MCHC (31.0-37.0) g/dL RDW (11.5-15.5) % Plt Count (150-450) k/uL MPV Neutrophils % % Lymphocytes % % Monocytes % % Eosinophils % % Basophils % % Neutrophils # (1.3-7.7) k/uL Lymphocytes # (1.0-4.8) k/uL Monocytes # (0-1.0) k/uL Eosinophils # (0-0.7) k/uL Basophils # (0-0.2) k/uL PT (10.0-12.5) sec INR (<1.2) APTT (22.0-30.0) sec Sodium (137-145) mmol/L Potassium (3.5-5.1) mmol/L Chloride (98-107) mmol/L Carbon Dioxide (22-30) mmol/L Anion Gap mmol/L BUN (9-20) mg/dL Creatinine (0.66-1.25) mg/dL Est GFR (CKD-EPI)AfAm (>60 ml/min/1.73 sqM) Est GFR (CKD-EPI)NonAf (>60 ml/min/1.73 sqM) Glucose (74-99) mg/dL POC Glucose (mg/dL) (70-110) mg/dL POC Glu Skeet Operator ID Plasma Lactic Acid Balaji (0.7-2.0) mmol/L Calcium (8.4-10.2) mg/dL Total Bilirubin (0.2-1.3) mg/dL AST (17-59) U/L ALT (4-49) U/L Alkaline Phosphatase (38-126) U/L Troponin I (0.000-0.034) ng/mL Total Protein (6.3-8.2) g/dL Albumin (3.5-5.0) g/dL Urine Color Colorless Urine Appearance Clear (Clear) Urine pH 6.5 (5.0-8.0) Ur Specific [place] 1.004 (1.001-1.035) Urine Protein Negative (Negative) Urine Glucose (UA) 4+ H (Negative) Urine Ketones Negative (Negative) Urine Blood Negative (Negative) Urine Nitrite Negative (Negative) Urine Bilirubin Negative (Negative) Urine Urobilinogen <2.0 (<2.0) mg/dL Ur Leukocyte Esterase Negative (Negative) Disposition Clinical Impression: Weakness Disposition: HOME SELF-CARE Condition: Good Instructions (If sedation given, give patient instructions): Weakness (ED) Is patient prescribed a controlled substance at d/c from ED?: No Referrals: Jody Juan DO [Primary Care Provider] - 1-2 days Time of Disposition: 22:20
[2024-04-11] MEDS: diphenhydrAMINE 50 MG/ML 1 ML VIAL IVP STA (20:41)
[2024-04-11] MEDS: methylPREDNISolone SOD SUCCI 125 MG/2 ML VIAL IV STA (20:53)
[2024-04-11] MEDS: FAMOTIDINE 20 MG/2 ML VIAL IV STA (20:53)
--- NOTE | 2024-04-11 21:35 | CT ---
EXAMINATION TYPE: CT brain wo con DATE OF EXAM: 04/11/2024 HISTORY: weakness CT DLP: combined dlp 1668 mGycm. Automated Exposure Control for Dose Reduction was Utilized. TECHNIQUE: CT scan of the head is performed without contrast. COMPARISON: CT brain November 21, 2021. FINDINGS: There is no acute intracranial hemorrhage or midline shift identified. There is mild to m oderate diffuse ventricular and sulcal prominence redemonstrated. There is mild low-attenuation in t he periventricular white matter redemonstrated. The calvarium is intact. Bilateral aphakia redemonstr ated. Persisting completely opacified right sphenoid sinus. There are small mucous retention cysts and/or polyps in the bilateral maxillary sinuses. Vascular calcification distal internal carotid sidney erika bilaterally is redemonstrated. IMPRESSION: No acute intracranial hemorrhage or midline shift. There is mild to moderate diffuse ag e-related cerebral atrophy and mild chronic small vessel ischemic change redemonstrated. No significa nt change from prior CT. If concern for acute stroke, consider MRI follow-up. [facility], , 04/11/2024 9:33 PM
--- NOTE | 2024-04-11 22:12 | CT ---
EXAMINATION TYPE: CT angio head neck DATE OF EXAM: 04/11/2024 COMPARISON: CLINICAL INDICATION: Male, 78 years old with history of neurologic defectis; PHH, weakness TECHNIQUE: CTA scan of the head and neck is performed with IV Contrast, patient injected with 65ml m L of Isovue 370, axial images are obtained, coronal and sagittal reformatted images are reviewed. 3D reconstructed images are created on an independent workstation and reviewed. CT DLP: [address] CTDI: 45 mGy Automated exposure control for dose reduction was used. NASCET criteria was used in interpretation of this exam? FINDINGS: Right Carotid System: The common carotid artery and external carotid artery are patent. The carotid bifurcation demonstrate s no evidence of hemodynamically significant stenosis. Ware-ty-[id number] mixed peripheral plaque at ca rotid bulb level is seen The remaining portions of the internal carotid artery demonstrate normal siz e without significant narrowing. Moderate peripheral calcified plaque distally is present. Left Carotid System: The common carotid artery and external carotid artery are patent. The carotid bifurcation demonstrate s no evidence of hemodynamically significant stenosis. Mild to moderate peripheral calcified plaque a t left carotid bulb is present. The remaining portions of the internal carotid artery demonstrate nor mal size without significant narrowing. Moderate peripheral calcified plaque distally is present. Vertebral arteries are patent without evidence hemodynamically significant stenosis. Codominant verte bral arteries are noted. There is a three-vessel aortic arch. The origins of the great vessels are patent. No evidence of hemo dynamically significant stenosis. Moderate peripheral calcified plaque at arch. COW: Hypoplastic right A1 segment with filling of right A2 segment due to patent anterior indicating artery. Similar hypoplastic right P1 segment with filling of the right P2 segment due to patent right posterior communicating artery. Other: Mild to moderate underlying emphysematous change in the visualized upper lungs. IMPRESSION: 1. No large vessel occlusion or aneurysm at level of [place].. 2. No evidence of dissection of the cervical internal carotid arteries or vertebral arteries 3. No evidence of significant stenosis at the carotid bifurcations. [facility], , 04/11/2024 10:09 PM
[2024-04-11 22:42] VITALS: BP 137/91; PULSE 67; RESP 18; TEMP 97.4
== END 2024-04-11 22:39 | disposition home or self-care (01) ==
LOC: EC 17:08
DX: R53.1 Weakness (principal); Z86.73 Personal history of transient ischemic attack (TIA), and cerebral infarction without residual deficits; F17.200 Nicotine dependence, unspecified, uncomplicated; Z91.041 Radiographic dye allergy status
CPT/HCPCS: 36415; 93005; 80053; 83605; 84484; 85025; 85610; 85730; 81003; 71046; 70496; 70450; 70498; 99285; 96374; 96375 ×2; J1200; J3490; Q9967; J2919